=== PATIENT | male | born 1990 | race Caucasian/White ===

== ENCOUNTER 2016-08-12 22:16 | Emergency (ER) | payer OTHER ==
[2016-08-12 23:57] VITALS: BP 122/73; PULSE 83; O2SAT 97
[2016-08-13] MEDS ORDERED: KEFLEX 500 MG PO ONE (00:49)
[2016-08-13] MEDS ORDERED: NORCO 5/325 MG PO ONE ×2 (00:49→00:50)
--- NOTE | 2016-08-13 00:56 | ERPHSYRPT ---
- History of Present Illness Time Seen by Provider: 08/13/16 00:45 Source: patient Exam Limitations: no limitations Patient Subjective Stated Complaint: c/o pain in tooth on rt upper side. pt states it hurts all the way up into his right ear. pt has dentist appointment august 24. pt had 2 teeth cut out on the lt upper jaw 10 days ago. has not been on atb since oral surgery Triage Nursing Assessment: no visible external swelling noted. pt's skin is red from pt rubbing rt upper jaw and holding pressure on it. Physician History: FOR THE PAST DAY PT HAS HAD A RIGHT UPPER TOOTHACHE AND RIGHT EARACHE; DENIES FEVER, VOMITING, SORE THROAT. Allergies/Adverse Reactions: No Known Drug Allergies Allergy (Unverified 08/12/16 23:57) Hx Tetanus, Diphtheria Vaccination/Date Given: No Hx Influenza Vaccination/Date Given: No Hx Pneumococcal Vaccination/Date Given: No Immunizations Up to Date: No - Review of Systems Constitutional: No Fever Ears, Nose, & Throat: Ear Pain, Mouth Pain, No Throat Pain Abdominal/Gastrointestinal: No Vomiting All Other Systems: Reviewed and Negative - Past Medical History Pertinent Past Medical History: No Other Medical History: no hx - Past Surgical History Past Surgical History: Yes Genitourinary: Other Other Surgical History: kidney stone removed - Social History Smoking Status: Heavy tobacco smoker How long have you smoked: 6 yrs Exposure to second hand smoke: Yes Drug Use: none Patient Lives Alone: No - Nursing Vital Signs Nursing Vital Signs: Initial Vital Signs Temperature 98.1 F Temperature Source Oral Pulse Rate 83 Respiratory Rate 18 Blood Pressure [Left Arm] 122/73 Pain Intensity 7 - Physical Exam General Appearance: alert Eye Exam: bilateral eye: PERRL, EOMI Ear Exam: bilateral ear: TM normal Nasal Exam: normal inspection Throat Exam: pharynx normal, maxillary swelling (MINIMAL EDEMA, ERYTHEMA AND TENDERNESS OF THE GUM SURROUNDING A RIGHT MAXILLARY MOLAR.) Neck Exam: normal inspection Cardiovascular/Respiratory Exam: normal breath sounds, heart sounds normal Abdominal Exam: soft (B.S. NORMAL) Neurologic Exam: alert, cooperative Skin Exam: warm, dry SpO2 Interpretation: normal SpO2: 97 Oxygen Delivery: Room Air - Course Nursing assessment & vital signs reviewed: Yes Ordered Tests: Medication Summary Generic Name Dose Route Start Last Admin Trade Name Freq PRN Reason Stop Dose Admin Hydrocodone Bitart/Acetaminophen 2 tab 08/13/16 00:50 [place] 5/325 Mg PO 08/13/16 00:51 SENT HOME W/ PATIENT ONE Discontinued Medications Generic Name Dose Route Start Last Admin Trade Name Freq PRN Reason Stop Dose Admin Hydrocodone Bitart/Acetaminophen 2 tab 08/13/16 00:49 [place] 5/325 Mg PO 08/13/16 00:50 STAT ONE Cephalexin HCl 500 mg 08/13/16 00:49 Keflex 500 Mg PO 08/13/16 00:50 STAT ONE - Departure Time of Disposition: 00:59 Departure Disposition: Home Clinical Impression: TOOTH ABSCESS Condition: Fair Critical Care Time: No Instructions: Tooth Abscess Additional Instructions: FOLLOW UP WITH PRIVATE DENTIST TOMORROW. Prescriptions: Naproxen [Naprosyn] 500 mg PO Q12H PRN PRN #20 tablet PRN Reason: Pain Cephalexin Monohydrate [Keflex] 500 mg PO TID #30 capsule
[2016-08-13] MEDS ORDERED: KEFLEX 500 MG ONE (01:10)
[2016-08-13] MEDS ORDERED: NORCO 5/325 MG ONE (01:11)
== END 2016-08-13 01:35 | disposition home or self-care (01) ==
LOC: ED 22:16
DX: K04.7 Periapical abscess without sinus (principal); H92.01 Otalgia, right ear; Z98.890 Other specified postprocedural states
CPT/HCPCS: 99283; A9270-GY